=== PATIENT | male | born 1960 | race Caucasian/White ===

== ENCOUNTER → 2016-10-18 | Outpatient (CLI) | payer OTHER ==
[~2016-10-18] MED LIST: CELE-54 PO; FLU0530 TOP; LYRI25 PO; OXYC-481 PO; PANT40TA4 PO; TRAM50TA2 PO
--- NOTE | 2016-10-18 14:20 | RADRPT ---
PROCEDURE: XR pelvis/right hip. CLINICAL INDICATION: Hip pain TECHNIQUE: AP pelvis/AP and lateral right hip views available for review. COMPARISON: 08/18/2016 FINDINGS: There is a right total hip replacement. There is no evidence of loosening of the prosthesis. There i s normal mineralization, architecture and alignment. No fractures are identified. No osseous lesions are present. The left hip is unremarkable. The SI joints are unremarkable. The soft tissues are unr emarkable. IMPRESSION: Right total hip replacement Otherwise an unremarkable examination RPTAT: [facility] .Timmy Flor MD, Date Time Electronically viewed and signed by .Timmy Flor MD, on 10/18/2016 14:19 .B/
== END | disposition home or self-care (01) ==
LOC: HKI 10:42
PROVIDERS: ATTEND Orthopaedic Surgery
DX: Z47.1 Aftercare following joint replacement surgery (principal); Z96.641 Presence of right artificial hip joint
CPT/HCPCS: 73502; Z7500; G0463